=== PATIENT | female | born 1960 | race Caucasian/White ===

== ENCOUNTER 2017-08-23 18:35 | Observation (INO) ==
[2017-08-23] MEDS ORDERED: Aspirin 81 MG TAB.CHEW PO STA (18:38)
[2017-08-23] MEDS ORDERED: 0.9 % Sodium Chloride 1,000 ML IVC SCH ×2 (18:45→22:49)
--- NOTE | 2017-08-23 18:45 | Emergency Department Note ---
Disposition Clinical Impression: Chest pain Disposition: Admitted As Inpatient Condition: Good Reasons to Return/Additional Instructions: upon discharge follow up with your doctor for blood pressure rechecks Time of Disposition: 20:05 Chest Pain HPI - General Chief Complaint: ED Chest Pain Stated Complaint: chest pain Time Seen by Provider: 08/23/17 18:35 Source: patient Mode of arrival: ambulatory Limitations: no limitations Vital Signs Reviewed: Yes Nursing Notes Reviewed: Yes - History of Present Illness HPI Narrative: Patient states she has had chest pain off and on for several days. Then today about 4:00 it started and has remained Constant except She did take a nitroglycerin which relieved the pain. she also took 2 baby aspirin earlier. She had no associated shortness of breath with the chest pain did have some nausea but no vomiting Pt complaint: chest pain Onset (ago): day(s) (several) Duration: intermittent Onset: during rest Pain Location: substernal, left chest Severity: mild Pain Radiation: none Improves with: nitroglycerin Worsens with: nothing Associated symptoms: Reports: nausea. Denies: dyspnea, palpitations Treatments prior to arrival chest pain: aspirin, nitroglycerin - Related Data Home Medications Medication Instructions Recorded Confirmed Topiramate [Topamax] 50 mg PO HS 12/31/14 08/23/17 Albuterol Sulfate [Albuterol 1 - 2 puff IH Q6H PRN 01/14/16 08/23/17 Inhaler] Aspirin [Lo-Dose Aspirin EC] 81 mg PO DAILY 01/14/16 08/23/17 Budesonide/Formoterol 80/4.5 1 puff IH BID 07/20/16 08/23/17 [Symbicort 80/4.5] Bupropion HCl [Wellbutrin Xl] 300 mg PO DAILY 08/20/16 08/20/16 Fluticasone/Vilanterol [Breo 1 puff IH DAILY 08/20/16 08/23/17 Ellipta 100-25 Mcg INH] Loratadine [Claritin] 10 mg PO DAILY 08/20/16 08/23/17 hydrOXYzine HCl [Hydroxyzine HCl] 50 mg PO HS 08/20/16 08/23/17 Zolpidem [Ambien] 5 mg PO HS 08/23/17 08/23/17 Allergies Allergy/AdvReac Type Severity Reaction Status Date / Time Penicillins [PCN] Allergy Anaphylaxis Verified 08/20/16 10:58 atropine AdvReac Anaphylaxis Verified 08/20/16 10:58 ketorolac [From Toradol] AdvReac Nausea Verified 08/20/16 10:58 meperidine [From Demerol] AdvReac Anxiety Verified 08/20/16 10:58 All systems ED: reviewed and negative except as stated. Review of Systems: As Per HPI Constitutional: Denies: fever, chills, weakness, weight change Eyes: Denies: eye pain, eye discharge, vision change ENT ED: Denies: ear pain, throat pain, dental pain, hearing loss, epistaxis, congestion, dysphagia Cardiovascular: Reports: as per HPI, chest pain Respiratory: Denies: cough, dyspnea, wheezes, hemoptysis, stridor Gastrointestinal: Denies: abdominal pain, nausea, vomiting, diarrhea, constipation, hematemesis, melena, hematochezia Genitourinary: Denies: dysuria, frequency, hematuria, discharge Musculoskeletal: Denies: back pain, neck pain, arthralgia, myalgia Integumentary: Denies: rash, abrasion, lesions Neurological: Denies: headache, weakness, numbness, paresthesias, confusion, abnormal gait, vertigo Psychiatric: Denies: anxiety, depression, suicidal thoughts, homicidal thoughts , auditory hallucinations, visual hallucinations Endocrine: Denies: fatigue Hematological/Lymphatic: Denies: easy bleeding, easy bruising Allergic/Immunologic: Denies: facial swelling, urticaria Chest Pain PMH - Past Medical History Medical history: Reports: asthma, fibromyalgia, migraine, other Surgical history: Reports: other Psychiatric history: Reports: anxiety, depression 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 - Social History Smoking Status: Never smoker Alcohol use: Reports: none Drug use: Reports: none Physical Exam - General Limitations: no limitations General appearance: alert, in no apparent distress - Head Head exam: atraumatic, normocephalic, normal inspection - Eye Eye exam: Present: normal appearance, PERRL, EOMI - ENT ENT exam: normal exam, normal oropharynx, mucous membranes moist - Neck Neck exam: Present: normal inspection, full ROM, trachea midline - Chest Chest inspection: Present: normal inspection, symmetric chest wall rise - Respiratory Respiratory exam: Present: normal lung sounds bilaterally - Cardiovascular Cardiovascular exam: Present: regular rate, normal rhythm, normal heart sounds - Abdominal Exam Abdominal exam: Present: soft, Non-Tender, normal bowel sounds - Extremities Exam Extremities exam: Present: normal inspection - Back Exam Back exam: Present: normal inspection - Neurological Exam Neurological exam: Present: alert, oriented X3 - Psychiatric Psychiatric exam: Present: normal affect, normal mood - Skin Skin exam: Present: warm, dry, intact Chest Pain - MDM Narrative Medical decision making narrative: Case was discussed with Dr. Brown who requests a second set of enzymes and then she can be transfered to the floor - Lab Data Lab results reviewed: Yes I reviewed the patient's lab results. - Radiology Data Radiology results reviewed: Yes I reviewed the patient's radiology results. - EKG Data EKG attestation: Yes I reviewed and interpreted this EKG. EKG results narrative: EKG shows a sinus rhythm with rate of 86 bpm MS interval 157 ms QRS duration 116 ms. QT interval 371 ms QTc interval 415 ms R axis of 5 degrees bilaterally by my read it does show an incomplete right bundle-branch pattern
[2017-08-23 18:49] LABS: Basophils % 0.7 %; Eosinophils # 0.1 K/mcL (0.0-0.6); Eosinophils % 1.6 %; Hematocrit 37.1 % (35.3-44.9); Hemoglobin 12.5 g/dL (11.5-15.4); Immature Granulocytes % 0.2 % (0-4); Lymphocytes # 1.9 K/mcL (0.6-4.6); Lymphocytes % 34.7 %; Mean Corpuscular HGB Conc 33.7 g/dL (31.6-35.5); Mean Corpuscular Hemoglobin 30.4 pg (28.0-33.3); Mean Corpuscular Volume 90.3 fL (83.0-100.0); Mean Platelet Volume 11.3 fL (9.4-12.4); Monocytes # 0.4 K/mcL (0.0-1.3); Monocytes % 7.5 %; Platelet Count 247 K/mcL (140-400); Red Blood Count 4.11 M/mcL (3.82-4.97); Red Cell Distribution Width 13.9 % (11.5-14.5); Segmented Neutrophils % 55.3 %
[2017-08-23] MEDS ORDERED: Nitroglycerin 0.4 MG TAB.SUBL SL ONE ×2 (18:54→22:49)
[2017-08-23] MEDS ORDERED: 0.9 % Sodium Chloride 1,000 ML ONE (18:54)
[2017-08-23 18:57] LABS: Prothrombin Time 10.8 Seconds (9.4-12.1)
[2017-08-23] MEDS: Nitroglycerin 0.4 MG TAB.SUBL SL PRN ×3 (18:57→19:10)
[2017-08-23 19:00] LABS: Activated Partial Thrombo Time 29.8 Seconds (26.0-36.0)
[2017-08-23 19:04] LABS: Alanine Aminotransferase 22 Units/L (7-52); Albumin 3.9 g/dL (3.5-5.7); Albumin/Globulin Ratio 1.6 (1.1-2.2); Alkaline Phosphatase 70 Units/L (34-104); Aspartate Amino Transferase 19 Units/L (13-39); BUN/Creatinine Ratio 17 (6-26); Bilirubin,Total 0.3 mg/dL (0.3-1.0); Blood Urea Nitrogen 16 mg/dL (6-20); Calcium 9.2 mg/dL (8.6-10.3); Carbon Dioxide 25 mEq/L (23-29); Chloride 108 mEq/L (98-107); Globulin 2.5 g/dL (2.4-3.5); Glucose 88 mg/dL (70-105); Osmolality,Calculated 291 (280-300); Potassium 3.5 mEq/L (3.5-5.1); Sodium 140 mEq/L (136-145); Total Protein 6.4 g/dL (6.4-8.9); eGFR For African Americans > 60 (> 60); eGFR For Non-African Americans > 60 (> 60)
[2017-08-23 19:08] LABS: Troponin I < 0.03 ng/mL (< 0.04)
[2017-08-23 20:03] LABS: Bilirubin,Urine Negative (Negative); Blood,Urine Negative (Negative); Clarity,Urine Clear (Clear); Glucose,Urine (UA) Normal (Normal); Ketones,Urine Negative (Negative); Leukocyte Esterase,Urine Negative (Negative); Nitrite,Urine Negative (Negative); Protein,Urine Negative (Neg-Trace); Specific Gravity,Urine <= 1.005 (1.010-1.025); Urobilinogen,Urine Normal (Normal)
[2017-08-23 20:08] LABS: Color,Urine Light Yellow (Yellow)
[2017-08-23] MEDS ORDERED: Nitroglycerin 0.4 MG TAB.SUBL SL PRN (22:49)
[2017-08-23] MEDS ORDERED: Naloxone 0.4 MG/ML INJ IVP PRN (22:49)
[2017-08-23] MEDS ORDERED: Topiramate 25 MG TABLET PO SCH (22:49)
[2017-08-23] MEDS ORDERED: hydrOXYzine pamoate 25 MG CAPSULE PO SCH (22:49)
[2017-08-23] MEDS: Budesonide/Formoterol 80/4.5 MDI IH SCH (23:17)
[2017-08-24] MEDS ORDERED: hydrOXYzine pamoate 25 MG CAPSULE PO SCH (00:07)
[2017-08-24] MEDS: Topiramate 25 MG TABLET PO SCH ×2 (00:32→09:49)
[2017-08-24 02:27] LABS: Basophils % 0.6 %; Eosinophils # 0.1 K/mcL (0.0-0.6); Eosinophils % 2.3 %; Immature Granulocytes % 0.2 % (0-4); Lymphocytes # 1.6 K/mcL (0.6-4.6); Lymphocytes % 31.5 %; Mean Corpuscular HGB Conc 33.3 g/dL (31.6-35.5); Mean Corpuscular Hemoglobin 30.3 pg (28.0-33.3); Mean Corpuscular Volume 90.9 fL (83.0-100.0); Mean Platelet Volume 11.4 fL (9.4-12.4); Monocytes # 0.5 K/mcL (0.0-1.3); Monocytes % 9.3 %; Neutrophils # 2.9 K/mcL (1.6-8.9); Platelet Count 213 K/mcL (140-400); Red Blood Count 3.96 M/mcL (3.82-4.97); Red Cell Distribution Width 13.9 % (11.5-14.5); Segmented Neutrophils % 56.1 %
[2017-08-24 04:02] LABS: BUN/Creatinine Ratio 16 (6-26); Blood Urea Nitrogen 16 mg/dL (6-20); Calcium 8.9 mg/dL (8.6-10.3); Carbon Dioxide 26 mEq/L (23-29); Chloride 110 mEq/L (98-107); Glucose 129 mg/dL (70-105); Osmolality,Calculated 297 (280-300); Potassium 3.9 mEq/L (3.5-5.1); Sodium 142 mEq/L (136-145); eGFR For African Americans > 60 (> 60); eGFR For Non-African Americans 59 (> 60)
[2017-08-24] MEDS ORDERED: Aspirin Enteric Coated 81 MG Tablet PO SCH (09:00)
[2017-08-24] MEDS: Budesonide/Formoterol 80/4.5 MDI IH SCH (09:57)
[2017-08-24] MEDS ORDERED: (Breo Ellipta 100-25 Mcg Inh) IH SCH (10:00)
[2017-08-24 11:34] VITALS: BP 115/78
--- NOTE | 2017-08-24 12:44 | Electrocardiograph Report ---
[address] [place], [place] [address] Test Date: 2017-08-23 Pat Name: Monique Martines Department: [id number] Room: [facility] Gender: F Hotel Maintenance Engineer: Dann : 1960 Requested By: Bertrand Call Order Number: [id number] Reading MD: Froylan Rudolph Measurements Intervals [place] Rate: 86 P: 54 AL: 157 QRS: 5 QRSD: 116 T: 50 QT: 371 QTc: 415 Interpretive Statements SINUS RHYTHM INCOMPLETE RIGHT BUNDLE BRANCH BLOCK Electronically Signed On 08-24-2017 12:42:15 EDT by Froylan Rudolph
--- NOTE | 2017-08-24 14:35 | Internal Med History&Physical ---
Date of Encounter: 08/24/17 Time of Encounter: 14:00 Assessment and Plan (1) Chest pain Current visit: Yes Status: Acute Doubt myocardial ischemic origin based on history and physical. .Repeat cardiac enzymes were ordered through emergency room. Qualifiers: Chest pain type: unspecified Qualified Code(s): R07.9 - Chest pain, unspecified Internal Medicine - H&P: HPI Chief complaint: Chest pain Admitted From: Emergency Dept Plans for Post Hospital Care: Home History of present illness: Ms. Martines is a 56 year old female who came to emergency room complaining of discomfort in her chest. She reports it occurred intermittently since August 18. Episodes lasted only a few minutes and she describes them as sharp stabbing pains. There was slight dyspnea associated. On the morning of admission she had a similar episode of pain but it was more severe, felt more like "tightness", and lasted for approximately 4 hours. She became concerned so came to emergency room. She was evaluated and admitted to [facility] floor for ongoing care needs. She states her pain has significantly improved at the present time. She had a heart cath 01/15/2016 which showed LMCA free of disease, 30% stenosis in the proximal LAD, and RCA, circumflex, and first marginal angiographic free of disease. She denies hypertension ND heart failure DVT or pulmonary embolus. Past Med Surg Social Fam HX - Past Medical History Medical history: asthma, fibromyalgia, migraine, other Psychiatric history: anxiety, depression - Past Surgical History Surgical History: other - Social History Smoking Status: Never smoker Smokeless Tobacco Status: No Alcohol use: none Drug use: none Internal Medicine - H&P: Meds Topiramate [Topamax] 50 mg PO HS 12/31/14 [History] Albuterol Sulfate [Albuterol Inhaler] 1 - 2 puff IH Q6H PRN 01/14/16 [History] Aspirin [Lo-Dose Aspirin EC] 81 mg PO DAILY 01/14/16 [History] Budesonide/Formoterol 80/4.5 [Symbicort 80/4.5] 1 puff IH BID 07/20/16 [History ] Bupropion HCl [Wellbutrin Xl] 300 mg PO DAILY 08/20/16 [History] Fluticasone/Vilanterol [Breo Ellipta 100-25 Mcg INH] 1 puff IH DAILY 08/20/16 [ History] Loratadine [Claritin] 10 mg PO DAILY 08/20/16 [History] hydrOXYzine HCl [Hydroxyzine HCl] 50 mg PO HS 08/20/16 [History] Zolpidem [Ambien] 5 mg PO HS 08/23/17 [History] 3 Allergy/AdvReac Type Severity Reaction Status Date / Time Penicillins [PCN] Allergy Anaphylaxis Verified 08/20/16 10:58 atropine AdvReac Anaphylaxis Verified 08/20/16 10:58 ketorolac [From Toradol] AdvReac Nausea Verified 08/20/16 10:58 meperidine [From Demerol] AdvReac Anxiety Verified 08/20/16 10:58 All Systems PM: A 10-system review of systems was performed and is negative for pertinent findings except as documented above in the HPI. Review of systems: Gen.: She states she has gained approximately 30 pounds in the past year Cardiovascular: As per history of present illness Respiratory: She is a lifelong nonsmoker. She reports a diagnosis of asthma. GI: She denies disorders of her liver gallbladder or exocrine pancreas : She denies hematuria dysuria or kidney stones Neurologic: She has migraine headaches occasionally. She denies large distribution strokes or seizures. Endocrine: She has hyperlipidemia but denies diabetes or thyroid disease Hematology/oncology: She denies blood disorders cancers or anemia Psychiatric: She has anxiety and depression but denies other mental health issues [place] skeletal: She has degenerative disc disease of C3-7 and chronic low back pain. She has been diagnosed with fibromyalgia. - Constitutional Vitals: Temp Pulse Resp BP Pulse Ox 98 F 93 16 115/78 95 08/24/17 11:32 08/24/17 11:32 08/24/17 11:32 08/24/17 11:32 08/24/17 11:32 Exam: Enteral: She is a well-developed well-nourished female lying quietly in bed who appears in no acute distress HEENT: Head is atraumatic and normocephalic. Eyes: EOMI. There is no scleral icterus. Mouth: Mucosa is moist. Neck: Supple and nontender. There is no thyromegaly or adenopathy noted. Heart: Regular without murmurs gallops or ectopics Chest: She is nontender in her costosternal joints to palpation. Lungs: No wheezes or crackles are heard. Abdomen: Soft and nontender. No masses or guarding are noted. Extremities: There is no cyanosis edema or clubbing noted. Dorsalis pedis and posttibial pulses are trace to 1+ palpable bilaterally. Neurologic: Mental status: She is talkative and a good historian. Cranial nerves: Smile is symmetric. Forehead wrinkles bilaterally. Tongue protrudes midline. EOMI. Motor: There is no pronator drift. Cerebellar: Finger to nose is intact bilaterally. Skin: Warm and dry Internal Med - H&P Results - Labs CBC & Chem 7: 08/24/17 02:18 08/24/17 02:18 Labs: Short CBC 08/24/17 Range/Units 02:18 WBC 5.2 (4.3-11.1) K/mcL Hgb 12.0 (11.5-15.4) g/dL Hct 36.0 (35.3-44.9) % Plt Count 213 (140-400) K/mcL Neutrophils # 2.9 (1.6-8.9) K/mcL BMP 08/24/17 02:18 Sodium 142 Potassium 3.9 Chloride 110 H Carbon Dioxide 26 BUN 16 Creatinine 0.97 Glucose 129 H Calcium 8.9 Cardiac Enzymes 08/24/17 08/24/17 08/24/17 Range/Units 02:18 08:35 11:03 Troponin I < 0.03 < 0.03 < 0.03 (< 0.04) ng/mL
--- NOTE | 2017-08-24 14:44 | Discharge Summary ---
Date of Encounter: 08/24/17 Time of Encounter: 14:00 - Discharge Diagnosis (1) Chest pain Priority: Primary Status: Acute Qualifiers: Chest pain type: unspecified Qualified Code(s): R07.9 - Chest pain, unspecified Hospital course: Ms. Martines is a 56 year old female who came to emergency room complaining of discomfort in her chest. She reports it occurred intermittently since August 18. Episodes lasted only a few minutes and she describes them as sharp stabbing pains. There was slight dyspnea associated. On the morning of admission she had a similar episode of pain but it was more severe, felt more like "tightness", and lasted for approximately 4 hours. She became concerned so came to emergency room. She was evaluated and admitted to [facility] for ongoing care needs. Initial orders were written by the emergency room physician. I saw her on August 24 and performed a history physical and discharge. Repeat cardiac enzymes show no evidence of myocardial damage. When I saw her I did not think pain was likely to be of myocardial ischemic origin. The etiology of pain was not determined with certainty. Pain had significantly less and by the time I saw her. She felt stable for discharge home which I felt was reasonable. She will be given a refill prescription for Nitrostat at discharge. She will follow with her PCP Shanelle Alex CNP within 1 week. - Time Spent with Patient Total time spent providing and/or coordinating discharge services: - Discharge Medications Prescriptions: Nitroglycerin [Nitrostat] 0.4 mg SL Q5M PRN #1 vial PRN Reason: Chest Pain Home Medications: Topiramate [Topamax] 50 mg PO HS 12/31/14 [History] Albuterol Sulfate [Albuterol Inhaler] 1 - 2 puff IH Q6H PRN 01/14/16 [History] Aspirin [Lo-Dose Aspirin EC] 81 mg PO DAILY 01/14/16 [History] Budesonide/Formoterol 80/4.5 [Symbicort 80/4.5] 1 puff IH BID 07/20/16 [History ] Bupropion HCl [Wellbutrin Xl] 300 mg PO DAILY 08/20/16 [History] Fluticasone/Vilanterol [Breo Ellipta 100-25 Mcg INH] 1 puff IH DAILY 08/20/16 [ History] Loratadine [Claritin] 10 mg PO DAILY 08/20/16 [History] hydrOXYzine HCl [Hydroxyzine HCl] 50 mg PO HS 08/20/16 [History] Zolpidem [Ambien] 5 mg PO HS 08/23/17 [History] Nitroglycerin [Nitrostat] 0.4 mg SL Q5M PRN #1 vial 08/24/17 [Rx] Allergies/Adverse Reactions: 3 Allergy/AdvReac Type Severity Reaction Status Date / Time Penicillins [PCN] Allergy Anaphylaxis Verified 08/20/16 10:58 atropine AdvReac Anaphylaxis Verified 08/20/16 10:58 ketorolac [From Toradol] AdvReac Nausea Verified 08/20/16 10:58 meperidine [From Demerol] AdvReac Anxiety Verified 08/20/16 10:58 Date of admission: 08/23/17 21:04 Primary care physician: Shanelle Alex CNP - Constitutional Vitals: Temp Pulse Resp BP Pulse Ox 98 F 93 16 115/78 95 08/24/17 11:32 08/24/17 11:32 08/24/17 11:32 08/24/17 11:32 08/24/17 11:32 - Patient Status Disposition: Home, Self-Care Condition: Good Functional capacity at discharge: independent ambulation Overall status at discharge: patient is progressing back to baseline - Discharge Instructions Follow Up With: Shanelle Alex CNP [Primary Care Provider] - Additional Instructions: upon discharge follow up with your doctor for blood pressure rechecks - Diet and Activity Activity: resume usual activities as tolerated Diet: advance to your usual diet
== END 2017-08-24 16:16 | disposition home or self-care (01) ==
LOC: INPPIK 18:35 → EMEROOPIK 18:35 → INPPIK 21:52
PROVIDERS: ADMIT Internal Medicine; ATTEND Internal Medicine